=== PATIENT | female | born 1940 | race American Indian/Alaskan Native ===

== ENCOUNTER 2016-12-18 16:59 | Emergency (ER) | payer SELFPAY ==
[2016-12-18 17:16] VITALS: BP 155/69
[2016-12-18 17:52] LABS: BUN/Creatinine Ratio 12.85; Blood Urea Nitrogen 9 mg/dL (7-17); Carbon Dioxide 20 mmol/L (22-30)
[2016-12-18 17:53] LABS: Anion Gap 17 mmol/L; Calcium 8.3 mg/dL (8.4-10.2); Chloride 106.5 mmol/L (98-107); Glucose 119 mg/dL (65-100); Sodium 139 mmol/L (137-145)
[2016-12-18 18:05] LABS: Mean Corpuscular HGB Conc 27 % (30-34); Red Blood Count 4.98 M/mm3 (3.65-5.03)
[2016-12-18 18:33] LABS: Hematocrit 25.1 % (30.3-42.9); Hemoglobin 6.8 gm/dl (10.1-14.3); Mean Corpuscular Hemoglobin 14 pg (28-32); Mean Corpuscular Volume 50 fl (79-97); Platelet Count 257 K/mm3 (140-440); Red Cell Distribution Width 23.3 % (13.2-15.2)
== END 2016-12-18 19:45 | disposition left against medical advice (07) ==
LOC: ED 16:59
DX: R22.32 Localized swelling, mass and lump, left upper limb (principal); I10 Essential (primary) hypertension; Z53.21 Procedure and treatment not carried out due to patient leaving prior to being seen by health care provider
CPT/HCPCS: 36415; 80048; 85027